=== PATIENT | female | born 2000 | race Caucasian/White ===

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

== ENCOUNTER 2020-11-16 16:54 | Emergency (ER) | payer SELFPAY ==
[~2020-11-16 16:54] MED LIST: Iopamidol-370 76% 500 ML 1 ML ONE
[2020-11-16 18:06] LABS: Bilirubin Negative (Negative); Blood, Urine 1+ (Negative); Clarity Turbid (Clear); Glucose, Urine (Dipstick) Normal (Negative); Ketone, Urine 20 mg/dL (Negative); Leukocyte 25 Leu/uL (Negative); Nitrite Negative (Negative); Protein, Urine (Dipstick) 30 mg/dL (Neg-Trace); Specific Gravity, Urine 1.028 (1.002-1.036); Squamous Epithelial 21-50 HPF (0-3); Urobilinogen Normal mg/dL (Less than 2); pH, Urine 5.5 (5.0-9.0)
[2020-11-16 18:12] LABS: Bacteria/HPF 1+ HPF (None Seen)
[2020-11-16 18:14] LABS: Mucous/LPF 1+ LPF (<2+)
[2020-11-16 18:23] LABS: #Eosinphils 0.1 thou/uL (0.0-0.7); #Monocytes 0.3 thou/uL (0.11-0.59); #Neutrophils 5.3 thou/uL (1.40-6.50); %Basophils 0.5 % (0.0-1.0); %Lymphocytes 26.1 % (28.0-48.0); %Monocytes 3.9 % (0.0-4.0); %Neutrophils 68.5 % (31.0-61.0); Hemoglobin 13.7 g/dL (12.0-16.0); Mean Corpuscular HGB CONC 33.3 g/dL (32.0-36.0); Mean Corpuscular Hemoglobin 29.6 pg (25.0-35.0); Mean Corpuscular Volume 89.1 fL (78.0-98.0); Platelet Count 212 thou/uL (130-400); RBC Distribution Width 11.8 % (11.5-14.5); Red Blood Cell (RBC) Count 4.63 mill/uL (4.00-5.20); White Blood Cell (WBC) Count 7.8 thou/uL (4.8-10.8)
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
[2020-11-16 18:44] LABS: BHCG - Serum Negative (NEGATIVE); Pregs Control Background? CLEAR/WHITE (CLR/WHITE); Pregs Control Bar Appear? YES (CONTROL BAR)
[2020-11-16 18:59] LABS: ALT (SGPT) 16 U/L (8-55); AST (SGOT) 17 U/L (5-34); Albumin 4.4 g/dL (3.5-5.0); Alkaline Phosphatase 66 U/L (40-100); Anion Gap 14 mmol/L (10-20); BUN (Urea Nitrogen) 10 mg/dL (7.0-18.7); Bilirubin, Total 0.7 mg/dL (0.2-1.2); Calc. Creatinine Clearance 0 mL/min (70-130); Calcium 8.8 mg/dL (7.8-10.44); Carbon Dioxide 24 mmol/L (22-29); Chloride 105 mmol/L (98-107); Glucose 100 mg/dL (70-105); Potassium 3.8 mmol/L (3.5-5.1); Protein, Total 7.4 g/dL (6.0-8.3); Sodium 139 mmol/L (136-145)
[2020-11-16] MEDS ORDERED: Ketorolac Tromethamine 30 MG/ML VIAL ONE (19:02)
[2020-11-16] MEDS ORDERED: HYDROcodone/Acetaminophen 5/325 mg Tablet ONE (19:02)
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
== END 2020-11-16 19:52 | disposition home or self-care (01) ==
LOC: ERS 16:54
DX: S30.1XXA Contusion of abdominal wall, initial encounter (principal); T14.8XXA Other injury of unspecified body region, initial encounter; M79.601 Pain in right arm; V89.2XXA Person injured in unspecified motor-vehicle accident, traffic, initial encounter
CPT/HCPCS: 74177; 80053; 81003; 81015; 84703; 85025; 96374; J1885; Q9967

== ENCOUNTER 2021-05-23 16:41 | Emergency (ER) | payer SELFPAY | END 2021-05-23 17:40 | disposition home or self-care (01) | LOC: ERS 16:41 | DX: L03.213 Periorbital cellulitis (principal); Z79.899 Other long term (current) drug therapy | CPT/HCPCS: 99283 ==